=== PATIENT | female | born 2000 | race Caucasian/White ===

== ENCOUNTER 2020-07-31 14:11 | Inpatient (IN) | payer OTHER ==
[~2020-07-31] VITALS: Ht 157.5 cm; Wt 83.9 kg
[2020-07-31 14:12] VITALS: BP 106/52
[2020-07-31 14:58] LABS: HEMATOCRIT 41.1 % (37.0-47.0); HEMOGLOBIN 13.5 gm/dL (12.0-15.0); MCH 27.1 pg (26.0-34.0); MCHC 32.7 g/dL (28.0-37.0); MCV 82.8 fL (80.0-100.0); PLATELET COUNT 384 thou/uL (150-400); RBC 4.97 mil/uL (4.20-5.00); RDW 14.5 % (10.5-14.5); WBC 27.6 thou/uL (4.0-11.0)
[2020-07-31 15:10] LABS: CALCIUM 10.4 mg/dL (8.5-10.1); CREATININE 0.7 mg/dL (0.6-1.0); POTASSIUM 3.6 mmol/L (3.5-5.1)
[2020-07-31 15:16] LABS: ALBUMIN 4.5 g/dL (3.4-5.0); TOTAL BILIRUBIN 0.4 mg/dL (0.2-1.0); TOTAL PROTEIN 8.1 g/dL (6.4-8.2)
[2020-07-31 15:25] LABS: ABSOLUTE NEUTROPHILS 25.1 thou/uL (1.4-8.2)
[2020-07-31 15:26] LABS: LARGE PLATELETS OCCASIONAL
[2020-07-31 15:27] LABS: ANISOCYTOSIS 1+
[2020-07-31 15:50] LABS: URINE BILIRUBIN NEGATIVE (Negative); URINE BLOOD NEGATIVE (Negative); URINE CLARITY CLEAR; URINE COLOR YELLOW; URINE GLUCOSE-RANDOM* NEGATIVE (Negative); URINE KETONES 3+ (Negative); URINE LEUKOCYTES-REFLEX NEGATIVE (Negative); URINE NITRITE-REFLEX NEGATIVE (Negative); URINE PROTEIN (DIPSTICK) 1+ (Negative); URINE SPECIFIC GRAVITY >= 1.030 (1.005-1.035); URINE UROBILINOGEN 0.2 E.U./dl (0.2-1.0)
[2020-07-31 16:15] LABS: AMORPHOUS URATES Moderate /LPF (None Seen); BACTERIA-REFLEX 1-9 Few /HPF (None Seen); CASTS None Seen /LPF (None Seen); SQUAMOUS 0-3 Few /LPF (0-3); URINE RBC None Seen /HPF (0-2); URINE WBC-REFLEX None Seen /HPF (0-5)
[2020-07-31 18:29] VITALS: BP 108/60
[2020-07-31 19:55] VITALS: BP 150/82
[2020-08-01 04:16] VITALS: BP 128/68
--- NOTE | 2020-08-01 05:48 | NUR ---
[facility] PT IS A&OX4. VITAL SIGN STABLE. PT HAS RIGHT AC WITH FLUIDS GOING. PT IS UP AD JONATHAN. PT CALLS OUT APPROPRIATELY WHEN SHE NEEDS ASSISTANCE. PT IS NAUSEUOS AND VOMITING - CLEAR TO DARK RED FLUIDS. PT DENIES PAIN UNTIL THI S HAPPENS. PT RECEIVES IV FENTANYL AND ZOFRAN. HOURLY ROUNDS DONE. WILL CONTINUE TO MONITOR.
--- NOTE | 2020-08-01 06:15 | NUR ---
THIS NURSE AGREES WITH ASSESSMENT AND NOTES BY [employer]SULT[employer] ON THIS PATIENT.
[2020-08-01 07:35] VITALS: BP 137/91
--- NOTE | 2020-08-01 10:11 | NUR ---
PT CARE ASSUMED AT 0700. A&Ox4. PT COMPLAINING ABOUT N/V. TREATED FOR PAIN AND NAUSEA. RESOLVED. NPO SINCE MIDNIGHT. IV PATENT WITH NO REDNESS OR EDEMA, FLUIDS INFUSING. COVID NEGATIVE. PT AND CONCERNED ABOUT HAVING SURGERY. WBC 27.6 LIPASE 63 CALL LIGHT IN REACH. WILL CONTINUE TO MONITOR.
[2020-08-01 20:22] VITALS: BP 124/78
--- NOTE | 2020-08-02 04:00 | NUR ---
pt c/o of pain and nausea .zofran given x2 as well as fentanyl x1. She is voiding okay. afebrile. Greenish yellow emesis. Walking to the bathroom with SBA.
[2020-08-02 07:45] VITALS: BP 124/78
--- NOTE | 2020-08-02 13:19 | NUR ---
ASSESSMENT: CM REVIEWED CHART AND SPOKE WITH PT AT THE BEDSIDE. PT IS ALERT AND ORIENTED X4. PT REPORTS THAT SHE LIVES IN A HOUSE WITH HER BOYFRIEND. PT REPORTS THAT SHE IS FULLY INDEPENDENT WITH ADLS AND AMBUATLION. CM DISCUSSED ROLE. PT STATES SHE DOES NOT HAVE ANY ACTIVE INSURANCE. CM PROVIDED PT WITH A [facility], [facility] [place], AND MULTIPLE OTHER CLINICS THAT SHE COULD FOLLOW UP AT WHILE HAVING NO INSURANCE. PT REPORTS SHE HAS NO FURTHER NEEDS FROM CM AT THIS TIME. CM WILL CONTINUE TO FOLLOW TO ASSIST NEEDED.
--- NOTE | 2020-08-02 13:32 | NUR ---
PT CARE ASSUMED AT 0700. A&Ox4. PT CONTINUES TO HAVE EMESIS AND CANNOT KEEP ANYTHING DOWN. PAIN TOLERATED WELL WITH PAIN MEDICATION ON BOARD. NAUSEA ONLY STOPS WHEN PT IS ABLE TO SLEEP. DR. JO INFORMED OF PATIENT STATUS. ORDERS TO CONTACT DR. SOLIMAN TO COME SEE PT AGAIN. MESSAGE SENT TO DR. SOLIMAN AT 7541. AWAITING RESPONSE. PT HAS TAKEN A SHOWER AND UP AT JONATHAN IN THE ROOM. CALL LIGHT IN REACH. MOTHER UPDATED OVER THE PHONE. WILL CONTINUE TO MONITOR.
[2020-08-02 19:30] VITALS: BP 125/76
[2020-08-03 04:47] VITALS: BP 107/50
--- NOTE | 2020-08-03 06:33 | NUR ---
PT SLEPT MOST OF THE NIGHT. NO EPISODES OR NAUSEA OR VOMITING. UP AD JONATHAN TO THE BATHROOM.VOIDING ADEQUATELY. IVF INFUSING, PT ALSO DRINKING.AFEBRILE.VSS.
[2020-08-03 08:27] VITALS: BP 111/62
[2020-08-03] MEDS ORDERED: ZOFRAN4 MG PO (13:58)
[2020-08-03] MEDS ORDERED: PROCHLORPERAZINE5 M2 PO (13:58)
[2020-08-03] MEDS ORDERED: FAMOTIDINE20 MG/2 M1 PO (13:58)
[2020-08-03] MEDS ORDERED: PROMETHAZINE12.5 M4 RECTAL (13:58)
[2020-08-03] MEDS ORDERED: PYRIDOXINE HCL50 MG PO (13:58)
--- NOTE | 2020-08-03 14:12 | NUR ---
PT CARE ASSUMED AT 0700. A&Ox4. PT LOOKS MUCH BETTER TODAY AND IS TOLERATING ALL HER FOOD AND FLUIDS WITH NO EPISODES OF NAUSEA/VOMITTING. IV PATENT WITH NO REDNESS OR EDEMA, FLUIDS INFUSING. UP AT JONATHAN. TOLERATING ALL PO MEDS WELL. PT GOOD TO DISCHARGE. CALL LIGHT IN REACH. WILL CONTINUE TO MONITOR UNTIL DISCAHRGE.
[2020-08-03 14:17] VITALS: BP 111/62
== END 2020-08-03 15:10 | disposition home or self-care (01) | DRG 833 ==
LOC: ER 14:11 → EROBS 17:58 → 4S 17:58
PROVIDERS: Emergency Medicine; ADMIT Surgery; ATTEND Surgery
DX: O99.611 Diseases of the digestive system complicating pregnancy, first trimester (principal); Z3A.00 Weeks of gestation of pregnancy not specified; Z20.828 Contact with and (suspected) exposure to other viral communicable diseases
CPT/HCPCS: 10195

== ENCOUNTER 2020-08-24 12:58 | Inpatient (IN) | payer OTHER ==
[~2020-08-24] VITALS: Ht 157.5 cm; Wt 86.2 kg
[~2020-08-24 12:58] MED LIST: FAMOTIDINE20 MG/2 M1 PO; PROCHLORPERAZINE5 M2 PO; PROMETHAZINE12.5 M4 RECTAL; PYRIDOXINE HCL50 MG PO; ZOFRAN4 MG PO
[2020-08-24 12:59] VITALS: BP 138/83
[2020-08-24 13:48] LABS: URINE BILIRUBIN NEGATIVE (Negative); URINE BLOOD NEGATIVE (Negative); URINE CLARITY CLEAR; URINE COLOR YELLOW; URINE GLUCOSE-RANDOM* NEGATIVE (Negative); URINE KETONES 3+ (Negative); URINE LEUKOCYTES-REFLEX NEGATIVE (Negative); URINE NITRITE-REFLEX NEGATIVE (Negative); URINE PROTEIN (DIPSTICK) 2+ (Negative); URINE SPECIFIC GRAVITY >= 1.030 (1.005-1.035); URINE UROBILINOGEN 0.2 E.U./dl (0.2-1.0)
[2020-08-24 13:53] LABS: URINE REDUCING SUBSTANCE NEGATIVE
[2020-08-24 14:05] LABS: CASTS None Seen /LPF (None Seen); MUCUS >6 Heavy strn/LPF (None Seen); SQUAMOUS >10 Many /LPF (0-3); URINE WBC-REFLEX 0-5 Rare /HPF (0-5)
[2020-08-24 14:06] LABS: BACTERIA-REFLEX 1-9 Few /HPF (None Seen); CRYSTALS None Seen /LPF (None Seen); URINE RBC 0-2 Rare /HPF (0-2)
[2020-08-24 15:19] LABS: HEMATOCRIT 42.8 % (37.0-47.0); HEMOGLOBIN 13.7 gm/dL (12.0-15.0); MCH 26.7 pg (26.0-34.0); MCV 83.3 fL (80.0-100.0); PLATELET COUNT 479 thou/uL (150-400); RBC 5.14 mil/uL (4.20-5.00); RDW 14.4 % (10.5-14.5); WBC 31.8 thou/uL (4.0-11.0)
[2020-08-24 15:33] LABS: CALCIUM 10.7 mg/dL (8.5-10.1); CREATININE 0.8 mg/dL (0.6-1.0); POTASSIUM 3.5 mmol/L (3.5-5.1)
[2020-08-24 15:35] LABS: ALBUMIN 4.2 g/dL (3.4-5.0); TOTAL BILIRUBIN 0.3 mg/dL (0.2-1.0); TOTAL PROTEIN 8.8 g/dL (6.4-8.2)
[2020-08-24 16:11] LABS: ABSOLUTE NEUTROPHILS 29.9 thou/uL (1.4-8.2); ANISOCYTOSIS 1+; LARGE PLATELETS OCCASIONAL
[2020-08-24] MEDS ORDERED: MULTIVITAMINS PO (19:11)
[2020-08-24 21:02] VITALS: BP 137/80
[2020-08-24 21:35] VITALS: BP 149/76
[2020-08-24 21:46] VITALS: BP 120/45
[2020-08-25 03:52] VITALS: BP 153/73
--- NOTE | 2020-08-25 05:08 | NUR ---
PT WAS ADMITTED TO THE UNIT FROM THE ER IN A STABLE CONDITION.PT DENIED PAIN SO FAR.PT HAD ONE EPISODE OF N/V.PT ON SCHEDULED ZOFRAN.ADMISSION HX,EDUCATION AND ASSESSMENT COMPLETED.PT VERY WEAK WAS EDUCATED TO CALL FOR ASSISTNACE TO THE BR.PT VOICED UNDERSTANDING.PT RESTING ON HER BED AT THIS TIME.CALL LIGHT WITHIN REACH.
[2020-08-25 05:20] LABS: HEMATOCRIT 36.6 % (37.0-47.0); HEMOGLOBIN 11.9 gm/dL (12.0-15.0); MCHC 32.6 g/dL (28.0-37.0); MCV 83.1 fL (80.0-100.0); RBC 4.4 mil/uL (4.20-5.00); RDW 14.5 % (10.5-14.5); WBC 24.7 thou/uL (4.0-11.0)
[2020-08-25 05:49] LABS: CALCIUM 9.1 mg/dL (8.5-10.1); CREATININE 0.7 mg/dL (0.6-1.0); POTASSIUM 3.3 mmol/L (3.5-5.1)
[2020-08-25 07:09] LABS: HAV IgM AB (ANTI-HAV IgM) Negative (Negative); HEPATITIS B SURFACE AG Negative (Negative); HEPATITIS C VIRUS AB <0.1 (0.0-0.9)
--- NOTE | 2020-08-25 09:55 | NUR ---
assumed care at 0700. pt is a&o x4. pt has scd hose. pt has been constanly vomitting. pt only have a sip of water or a half of spoon of jello, and she will throw up 2 buckets full of vomit( pink/red). pt feels weak and complains of pain. pt is unsteady. ra. iv is on r. ac is intact and shows no signs of redness or swelling. vss. wbc is high. pt refuses po medication as she would constantly throw up. soft abd. lungs and heart sounds are regular and clear. will continue to monitor.
--- NOTE | 2020-08-25 11:51 | NUR ---
ASSESSMENT: CM REVIEWED CHART AN SPOKE WITH PT. PT WAS JUST RECENTLY AT [facility]. PT IS 9 WEEKS AND HX OF CHOLELITHIASIS AND HAS BEEN HAVING NAUSEA AND VOMITTING. DR. SOLIMAN IS ON THE CASE AND FOLLOWING. PT REPORTS LIVING IN A HOUSE WITH HER BOYFRIEND. PT NOW HAS HOME STATE FOR INSURANCE AND WAS RECENTLY GIVEN RESOURCES FOR OUTPT FOLLOW UP LAST ADMISSION. PT DENIES THE NEED FOR ANY OTHER RESOURCES AT THIS TIME. CM WILL CONTINUE TO FOLLOW TO ASSIST NEEDED.
[2020-08-25 15:50] VITALS: BP 110/60
[2020-08-25 19:15] VITALS: BP 106/44
[2020-08-26 04:20] VITALS: BP 99/32
[2020-08-26 05:00] VITALS: BP 102/50
--- NOTE | 2020-08-26 06:00 | NUR ---
08-26-19 CARE TRANSFERRED 1899. PT AAOX4, VSS, RR EVEN AND NONLABORED ON RA. PT HAS TOLERATED 3 APPLE JUICE AND 2 PK OF CRACKERS AND 1 PK OF GRAMHAM CRACKERS, PT HAS NO EMESIS AND REPORTS FEELING BETTER, PT DENIES PAIN. ZERO S/S OF ACUTE DISTRESS NOTED, PT WILL CONTINUE TO BE MONITOR PER PROTOCOL
[2020-08-26 06:17] LABS: HEMATOCRIT 31.5 % (37.0-47.0); HEMOGLOBIN 10.2 gm/dL (12.0-15.0); MCH 27.2 pg (26.0-34.0); MCHC 32.3 g/dL (28.0-37.0); RBC 3.75 mil/uL (4.20-5.00); RDW 14.4 % (10.5-14.5); WBC 14.3 thou/uL (4.0-11.0)
[2020-08-26 06:55] LABS: ALBUMIN 2.5 g/dL (3.4-5.0); CALCIUM 8.4 mg/dL (8.5-10.1); CREATININE 0.7 mg/dL (0.6-1.0); POTASSIUM 3.2 mmol/L (3.5-5.1); TOTAL BILIRUBIN 0.4 mg/dL (0.2-1.0); TOTAL PROTEIN 5.5 g/dL (6.4-8.2)
[2020-08-26 07:25] VITALS: BP 109/53
[2020-08-26] MEDS ORDERED: PROCHLORPERAZINE5 M2 PO (08:22)
[2020-08-26] MEDS ORDERED: PROMETHAZINE12.5 M4 RECTAL (08:22)
[2020-08-26] MEDS ORDERED: ZOFRAN4 MG PO (08:22)
[2020-08-26] MEDS ORDERED: PROTONIX 20 MG20 MG PO (08:22)
--- NOTE | 2020-08-26 09:45 | NUR ---
ON-GOING ASSESSMENT: CM REVIEWED CHART. PT IS A POSSIBLE DISCHARGE TODAY IF SHE CAN TOLERATE HER DIET. PT WILL HAVE NO NEEDS FROM CM AT DISCHARGE.
[2020-08-26 10:59] VITALS: BP 109/53
== END 2020-08-26 12:25 | disposition home or self-care (01) | DRG 833 ==
LOC: ER 12:58 → EROBS 18:48 → 4S 18:48
PROVIDERS: Obstetrics & Gynecology; Physician Assistant; ADMIT Hospitalist; ATTEND Hospitalist
DX: O21.0 Mild hyperemesis gravidarum (principal); O99.281 Endocrine, nutritional and metabolic diseases complicating pregnancy, first trimester; O99.611 Diseases of the digestive system complicating pregnancy, first trimester; O99.011 Anemia complicating pregnancy, first trimester; Z3A.09 9 weeks gestation of pregnancy
CPT/HCPCS: 10195

== ENCOUNTER 2020-09-15 06:34 | Emergency (ER) | payer OTHER ==
[~2020-09-15] VITALS: Ht 157.5 cm; Wt 86.2 kg
[~2020-09-15 06:34] MED LIST changes: +MULTIVITAMINS PO; +PROTONIX 20 MG20 MG PO
[2020-09-15 07:01] LABS: URINE BILIRUBIN NEGATIVE (Negative); URINE BLOOD NEGATIVE (Negative); URINE CLARITY SL CLOUDY; URINE COLOR YELLOW; URINE GLUCOSE-RANDOM* NEGATIVE (Negative); URINE KETONES NEGATIVE (Negative); URINE LEUKOCYTES-REFLEX TRACE (Negative); URINE NITRITE-REFLEX NEGATIVE (Negative); URINE PROTEIN (DIPSTICK) NEGATIVE (Negative); URINE SPECIFIC GRAVITY 1.025 (1.005-1.035)
[2020-09-15] MEDS ORDERED: REGLAN 10 MG TA10 MG PO (08:11)
[2020-09-15] MEDS ORDERED: PEPCID40 MG PO (08:11)
[2020-09-15 09:10] VITALS: BP 143/89
== END 2020-09-15 09:09 | disposition home or self-care (01) ==
LOC: ER 06:34
PROVIDERS: Emergency Medicine
DX: O21.8 Other vomiting complicating pregnancy (principal); O26.892 Other specified pregnancy related conditions, second trimester; R31.9 Hematuria, unspecified; Z79.899 Other long term (current) drug therapy; Z3A.17 17 weeks gestation of pregnancy

== ENCOUNTER 2020-09-16 16:30 | Inpatient (IN) | payer OTHER ==
[~2020-09-16] VITALS: Ht 157.5 cm; Wt 90.7 kg
--- NOTE | ~2020-09-16 | O ---
[facility] [place] [address] OPERATIVE REPORT Name: TAVO UGALDE Room #: 442-P ADM IN M.R.#: [id number] Admission: 09/16/20 Attend Phys: Fabrice Fournier MD Discharge: Date of : 00 Report #: [id number] THIS REPORT FOR: cc: FAM - No family physician/PCP FAM - No family physician/PCP Marvin Hale MD ~ PREOPERATIVE DIAGNOSIS: Symptomatic cholelithiasis. POSTOPERATIVE DIAGNOSIS: Symptomatic cholelithiasis. OPERATION: Laparoscopic cholecystectomy. SURGEON: Marvin Hale MD ANESTHESIA: General. ESTIMATED BLOOD LOSS: Minimal. SPECIMEN: Gallbladder. DESCRIPTION OF PROCEDURE: After informed consent was obtained, the patient was brought to the operating room and placed supine. SCDs were placed and working, preoperative antibiotics were administered, general anesthesia was induced. The abdomen was prepped and draped in the usual sterile fashion. A 10 mm incision was made below the umbilicus. Fascia was incised and a trocar was placed. Pneumoperitoneum was established. Three right upper quadrant 5 mm ports were placed. Gallbladder was grasped and retracted cephalad. Infundibulum was grasped and retracted laterally. I dissected out the cystic duct and cystic artery. Cystic plate was fully identified. Cystic duct and artery were clipped and ligated leaving 2 clips on the remaining duct and one on the remaining artery. Gallbladder was then taken off the liver bed with electrocautery. It was placed into an Endopouch and removed. The fascia was then closed with a [id number] 0 Vicryl. Skin was closed with 4-0 Monocryl. Incisions were dressed with Steri-Strips. COMPLICATIONS: None. DISPOSITION: The patient was taken to recovery in satisfactory condition. By: [id number] Marvin Hale MD /nt
[~2020-09-16 16:30] MED LIST changes: +PEPCID40 MG PO; +REGLAN 10 MG TA10 MG PO
[2020-09-16 16:31] VITALS: BP 142/93
[2020-09-16 18:09] LABS: HEMATOCRIT 43.6 % (37.0-47.0); HEMOGLOBIN 14.5 gm/dL (12.0-15.0); MCH 27.1 pg (26.0-34.0); MCHC 33.3 g/dL (28.0-37.0); MCV 81.2 fL (80.0-100.0); PLATELET COUNT 419 thou/uL (150-400); RBC 5.37 mil/uL (4.20-5.00); RDW 13.4 % (10.5-14.5); WBC 27.1 thou/uL (4.0-11.0)
[2020-09-16 18:24] LABS: ALBUMIN 4.1 g/dL (3.4-5.0); CALCIUM 10.1 mg/dL (8.5-10.1); CREATININE 0.8 mg/dL (0.6-1.0); TOTAL BILIRUBIN 1.1 mg/dL (0.2-1.0); TOTAL PROTEIN 8.8 g/dL (6.4-8.2)
[2020-09-16 18:26] LABS: POTASSIUM 2.7 mmol/L (3.5-5.1)
[2020-09-16 18:42] LABS: ABSOLUTE NEUTROPHILS 22.5 thou/uL (1.4-8.2); PLATELET ESTIMATE NORMAL
[2020-09-16 19:45] LABS: URINE BLOOD NEGATIVE (Negative); URINE CLARITY CLEAR; URINE GLUCOSE-RANDOM* NEGATIVE (Negative); URINE KETONES 2+ (Negative); URINE NITRITE-REFLEX NEGATIVE (Negative); URINE PROTEIN (DIPSTICK) 1+ (Negative)
[2020-09-16 19:46] LABS: ICTOTEST (BILI CONFIRMATORY) Negative (Negative); URINE BILIRUBIN NEGATIVE (Negative); URINE COLOR DARK YELLOW; URINE LEUKOCYTES-REFLEX 1+ (Negative)
[2020-09-16 19:55] LABS: SQUAMOUS >10 Many /LPF (0-3)
[2020-09-16 19:56] LABS: CASTS None Seen /LPF (None Seen)
[2020-09-16 19:57] LABS: URINE WBC-REFLEX 0-5 Rare /HPF (0-5)
[2020-09-16 19:58] LABS: URINE RBC None Seen /HPF (0-2)
[2020-09-16 19:59] LABS: BACTERIA-REFLEX 1-9 Few /HPF (None Seen); CRYSTALS None Seen /LPF (None Seen)
[2020-09-17 04:03] VITALS: BP 117/64
[2020-09-17 04:39] VITALS: BP 126/81
[2020-09-17 04:54] VITALS: BP 134/84
[2020-09-17 05:58] LABS: HEMATOCRIT 37.2 % (37.0-47.0); MCH 27.2 pg (26.0-34.0); MCHC 33.2 g/dL (28.0-37.0); MCV 81.7 fL (80.0-100.0); RBC 4.55 mil/uL (4.20-5.00); RDW 13.7 % (10.5-14.5); WBC 18.5 thou/uL (4.0-11.0)
[2020-09-17 06:02] LABS: HEMOGLOBIN 12.4 gm/dL (12.0-15.0)
[2020-09-17 06:12] LABS: CALCIUM 8.8 mg/dL (8.5-10.1); CREATININE 0.7 mg/dL (0.6-1.0); POTASSIUM 3.5 mmol/L (3.5-5.1)
[2020-09-17 08:27] VITALS: BP 105/70
[2020-09-17 17:07] VITALS: BP 120/71
[2020-09-17 20:00] VITALS: BP 112/70
--- NOTE | 2020-09-17 20:44 | NUR ---
PT ADMITTED FROM THE ER AT THE END OF PREVIOUS SHIFT TO GIANNA MARVIN. THIS RN COMPLEETED DMISSION OF PT. CONSENTS SIGNED. SCD'S IN PLACE. CALL LIGHT IN REACH. PT NOT VOMITTING. PAIN TOLERATED WELL WITH MEDICATION ON BOARD. CLEAR LIQUIDS PER DR. SOLIMAN. PT WENT FOR SURGERY WITH LAP CHOLY NO COMPLICATIONS. LAPSITESx4. PAIN MEDICATION GIVEN AND EDUCATED PATIENT ON AMBULATING TO HELP MINIMIZE POST OPERATIVE PAIN. ICE PACK ON SURGERY SITE. IV PATENT WITH NO REDNESS OR EDEMA, FLUIDS INFUSING. POTASSIUM STABILIZED AT 3.8 AT RECHECK. PT HAS URINATED AND TOLERATING CLEAR LIQUIDS WELL. FALL RISK POSTOPERATIVE. REPORT GIVEN TO SHAVONNE BENITEZ.
--- NOTE | 2020-09-18 00:55 | NUR ---
PER REPOT,PT IS UP ADLIB.PT WAS OBSERVED GETTING OUT FROM HER BED TO GO TO THE BR,PT WAS LIGHT HEADED AND ALMOST FELL.PT WAS PUT ON FALL PRECAUTIONS FOR HER SAFETY.PT EDUCATED TO USE HER CALL LIGHT FOR ASSISTANCE.PT VOICED UNDERSTANDING.PT C/O PAIN ON HER ABD,MANAGED WITH MED.PT CONT ON IVF AND IV ABX ORDERED.4 LAP SITES NOTED ON HER ABD COVERED WITH DERMABOND AND STERI STRIPS.PT RESTING COMFORTABLY ON HER BED AT THIS TIME.CALL LIGHT WITHIN REACH.
[2020-09-18 04:36] LABS: ABSOLUTE NEUTROPHILS 10.6 thou/uL (1.4-8.2); BASOPHILS 0.1 % (0.0-2.0); EOSINOPHILS 1.3 % (0.0-3.0); HEMATOCRIT 33.9 % (37.0-47.0); HEMOGLOBIN 11.1 gm/dL (12.0-15.0); LYMPHOCYTES 16.2 % (24.0-44.0); MCH 27.4 pg (26.0-34.0); MCHC 32.7 g/dL (28.0-37.0); MCV 83.9 fL (80.0-100.0); MONOCYTES 5.9 % (1.0-8.0); PLATELET COUNT 262 thou/uL (150-400); POLYS 76.5 % (36.0-66.0); RBC 4.04 mil/uL (4.20-5.00); RDW 13.7 % (10.5-14.5); WBC 13.9 thou/uL (4.0-11.0)
[2020-09-18 04:58] LABS: ALBUMIN 2.6 g/dL (3.4-5.0); CALCIUM 8.2 mg/dL (8.5-10.1); CREATININE 0.6 mg/dL (0.6-1.0); POTASSIUM 3.3 mmol/L (3.5-5.1); TOTAL BILIRUBIN 0.8 mg/dL (0.2-1.0); TOTAL PROTEIN 5.8 g/dL (6.4-8.2)
[2020-09-18 08:10] VITALS: BP 106/57
--- NOTE | 2020-09-18 13:07 | NUR ---
Assumed pt care this am, VS stable. 4 lap sites c/d/i, pain is managed with medications, no N& V noted. K replaced, diet is advanced as tolerated.
[2020-09-18 16:22] VITALS: BP 125/79
[2020-09-18 19:16] VITALS: BP 114/66
[2020-09-18 21:22] VITALS: BP 114/66
--- NOTE | 2020-09-18 22:28 | NUR ---
PT AOX4. PT REPORTS 7/10 PRESSURE LIKE PAIN IN ABDOMEN, NEAR LAP SITES. LAP SITES WITH NO NEW DRAINAGE, OLD BLOOD REMAINS ON DRESSING, SITES INTACT, ICE APPLIED WITH IMMEDIATE RELIEF. PT RECEIVING PRN PO NORCO Q6HR WITH PRN PO APAP Q4HR AVAILABLE. PT DENIES SOB WHILE ON ROOM AIR. PT TOLERATING PO INTAKE OF FLUIDS AND REGULAR DIET WITHOUT ISSUE. PT DENIES NAUSEA. PT AMBULATING INDEPENDENTLY IN ROOM AND TO BATHROOM, RESTING IN BED OTHERWISE. FREQUENT REPOSITIONING ENCOURAGED WHILE IN BED, PT NOTED TO SHIFT INDEPENDENTLY WHILE IN BED. PT ENCOURAGED TO NOTIFY STAFF FOR ALL NEEDS, CALL LIGHT WITHIN REACH, BED LOCKED IN LOWEST POSITION, FREQUENT MONITORING WILL CONTINUE.
[2020-09-19 03:37] VITALS: BP 115/66
[2020-09-19 05:01] LABS: CALCIUM 8.8 mg/dL (8.5-10.1); CREATININE 0.7 mg/dL (0.6-1.0); POTASSIUM 3.6 mmol/L (3.5-5.1)
[2020-09-19 07:54] VITALS: BP 119/64
[2020-09-19] MEDS ORDERED: ACETAMINOPHEN325 M1 PO (09:11)
--- NOTE | 2020-09-19 10:10 | NUR ---
PT CARE ASSUMED AT 0700. A&Ox4. PT UP AT JONATHAN IN ROOM AND HALLWAY. PAIN TOLERATED WELL WITH PAIN MEDICATION ON BOARD. LAPSITESx4 DRY AND INTACT. IV PATENT WITH NO REDNESS OR EDEMA, FLUIDS INFUSING. CALL LIGHT IN REACH. SCD'S IN PLACE. DISCHARGE INSTRUCTIONS GIVEN WITH NO FURTHER QUESTIONS. WILL CONTINUE TO MONITOR UNTIL HER RIDE ARRIVES.
[2020-09-19 10:13] VITALS: BP 119/64
--- NOTE | 2020-09-20 17:06 | PATH ---
[facility] [address] [place] [address] PATHOLOGY RPT PROCEDURE Name: PAZ UGALDE Room #: 442-P DIS IN M.R.#: [id number] Admission: 09/16/20 Date of : 00 Discharge: 09/19/20 Report #: [id number] Path Case #: [id number] [facility] Accession Number: [id number] . 01 Material submitted: . gallbladder - GALLBLADDER . 01 Clinical history: . CHOLECYSTITIS . 02 Diagnosis: Gallbladder, cholecystectomy: - Mild chronic cholecystitis. - Cholelithiasis. - Incidental reactive lymph node. (IUV:hayley; 09/20/2020) QMS 09/20/2020 1512 Local . 02 Electronically signed: . Aundrea Davison MD, Pathologist NPI- [id number] . 01 Gross description: . The specimen is received in formalin labeled "Paz Ugalde, gallbladder" and consists of an intact green-olivas, smooth, and shiny gallbladder measuring 7.5 x 3.5 x 3.1 cm. The margin is inked black. Opening reveals a lumen filled with viscous green bile and multiple multifaceted green calculi measuring up to 0.4 cm. The mucosa is dark green and velvety with scattered yellow specks and an average wall thickness of 0.1 cm. No masses are identified. Adjacent the gallbladder neck is a lymph node measuring 0.5 cm. Sub Assembly Team Worker sections are submitted in A1 with the lymph node (bisected). (SDY; 09/19/2020) SYU/SYU 09/19/2020 1357 Local . 02 Pathologist provided ICD-10: K80.10 . 02 CPT . 439691 Specimen Comment: A courtesy copy of this report has been sent to [phone], [phone] Specimen Comment: [phone] Specimen Comment: Report sent to / DR WILSON Performed at: [address] [facility], [place] [id number] [place] [address] PATHOLOGY RPT PROCEDURE Name: PAZ UGALDE Room #: 442-P DIS IN M.R.#: [id number] Admission: 09/16/20 Date of : 00 Discharge: 09/19/20 Report #: [id number] Path Case #: [id number] MD Adalberto Barker MD Phone: [phone] Performed at: [address] [id number] MD Aundrea Davison MD Phone: [phone]
== END 2020-09-19 10:49 | disposition home or self-care (01) | DRG 818 ==
LOC: ER 16:30 → EROBS 20:50 → 4S 20:50
PROVIDERS: Nurse Practitioner; ADMIT Hospitalist; ATTEND Hospitalist
PROC: 0FT44ZZ Resection of Gallbladder, Percutaneous Endoscopic Approach (ICD-10-PCS; principal; 2020-09-17)
DX: O99.612 Diseases of the digestive system complicating pregnancy, second trimester (principal); K80.00 Calculus of gallbladder with acute cholecystitis without obstruction; O21.0 Mild hyperemesis gravidarum; O23.42 Unspecified infection of urinary tract in pregnancy, second trimester; K80.20 Calculus of gallbladder without cholecystitis without obstruction; O99.282 Endocrine, nutritional and metabolic diseases complicating pregnancy, second trimester; Z20.822 Contact with and (suspected) exposure to COVID-19; E87.6 Hypokalemia; Z79.899 Other long term (current) drug therapy; Z87.440 Personal history of urinary (tract) infections; Z3A.15 15 weeks gestation of pregnancy
CPT/HCPCS: 10102; 50010; 50101; 50411; 50555; 51489; 52265; 52266; 53307; 53312; 53314; 55245; 56462; 56525; 56526; 62110; 62900; 70005